=== PATIENT | female | born 1960 | race Caucasian/White ===

== ENCOUNTER 2017-10-04 17:14 | Emergency (ER) | payer SELFPAY, OTHER | END 2017-10-04 21:04 | disposition home or self-care (01) | LOC: FTE 21:04 | DX: M25.562 Pain in left knee (principal); M54.2 Cervicalgia; M54.5 Low back pain; I10 Essential (primary) hypertension; E11.9 Type 2 diabetes mellitus without complications; E03.9 Hypothyroidism, unspecified; Z79.82 Long term (current) use of aspirin; Z79.84 Long term (current) use of oral hypoglycemic drugs | CPT/HCPCS: 72040; 72100; 73562; 99284-25 ==

== ENCOUNTER 2017-12-06 16:44 | Emergency (ER) | payer OTHER ==
[2017-12-06] MEDS: ACETAMINOPHEN 325 MG TAB PO (19:15)
[2017-12-06 19:24] LABS: URINE BLOOD (Dip) POC 2+ (NEGATIVE); URINE GLUCOSE (Dip) POC Negative (NEGATIVE); URINE KETONES (Dip) POC Negative (NEGATIVE); URINE LEUKOCYTE EST (Dip) POC Trace (NEGATIVE); URINE NITRITE (Dip) POC Negative (NEGATIVE); URINE TOTAL PROTEIN POC Negative (NEGATIVE)
== END 2017-12-06 19:47 | disposition home or self-care (01) ==
LOC: FTE 16:44
DX: R30.0 Dysuria (principal); I10 Essential (primary) hypertension; E11.9 Type 2 diabetes mellitus without complications; Z79.82 Long term (current) use of aspirin; Z79.84 Long term (current) use of oral hypoglycemic drugs
CPT/HCPCS: 81003; 81025; 99283

== ENCOUNTER 2018-06-27 10:24 | Emergency (ER) | payer OTHER ==
[2018-06-27] MEDS: LIDOCAINE 1% (MPF) 5 ML VIAL INJ (12:26)
[2018-06-27] MEDS: DIPHTH/TET/ACEL PERTUSS (ADULT) 0.5 ML VIAL IM* (12:26)
== END 2018-06-27 13:28 | disposition home or self-care (01) ==
LOC: FTE 13:28
DX: S01.25XA Open bite of nose, initial encounter (principal); I10 Essential (primary) hypertension; E11.9 Type 2 diabetes mellitus without complications; W54.0XXA Bitten by dog, initial encounter; Y92.9 Unspecified place or not applicable; Z23 Encounter for immunization; Z79.82 Long term (current) use of aspirin; Z79.84 Long term (current) use of oral hypoglycemic drugs
CPT/HCPCS: 12011; 90471; 90715; 99283-25

== ENCOUNTER 2018-06-29 09:05 | Emergency (ER) | payer OTHER | END 2018-06-29 10:10 | disposition home or self-care (01) | LOC: FTE 09:05 | DX: Z48.01 Encounter for change or removal of surgical wound dressing (principal); I10 Essential (primary) hypertension; E11.9 Type 2 diabetes mellitus without complications; Z79.82 Long term (current) use of aspirin; Z79.84 Long term (current) use of oral hypoglycemic drugs | CPT/HCPCS: 99283; Z7502 ==

== ENCOUNTER 2018-07-04 13:16 | Emergency (ER) | payer OTHER | END 2018-07-04 13:52 | disposition home or self-care (01) | LOC: FTE 13:52 | DX: Z48.02 Encounter for removal of sutures (principal); I10 Essential (primary) hypertension; E11.9 Type 2 diabetes mellitus without complications; Z79.82 Long term (current) use of aspirin; Z79.84 Long term (current) use of oral hypoglycemic drugs | CPT/HCPCS: 99281; Z7502 ==